=== PATIENT | male | born 1960 | race Hispanic/Latino ===

== ENCOUNTER 2020-04-15 09:46 | Outpatient (CLI) | payer OTHER ==
--- NOTE | 2020-04-15 11:34 | Cat Scan Report ---
CT ABDOMEN AND PELVIS WITHOUT CONTRAST HISTORY: MALIGNANT NEOPLASM OF PROSTATE COMPARISON: None. TECHNIQUE: Axial CT images were obtained through the abdomen and pelvis without IV contrast. Sagittal and coronal reformatted images. All CT scans at this location are performed using CT dose reduction for ALARA by means of automated exposure control. FINDINGS: CT ABDOMEN: Lung Bases: Clear. Liver: No significant abnormality. Biliary: Gallbladder is surgically absent. Spleen: No significant abnormality. Unenlarged. Pancreas: No significant abnormality. Adrenals: No significant abnormality. Kidneys: No significant abnormality. Lymphatics: No pathologic lymphadenopathy. Vasculature: No significant abnormality. Bowel/Peritoneum: No significant abnormality. No free air. No free fluid. Appendectomy changes. CT PELVIS: : No significant abnormality. Osseous Structures: No suspicious bony lesion is detected. Additional Findings: None IMPRESSION: No significant abnormality. No evidence for metastatic disease on noncontrast CT. Signer Name: Jefferson Lombardi Jr, MD Signed: 04/15/2020 11:30 AM Workstation Name: [id number]
--- NOTE | 2020-04-15 14:01 | Nuclear Medicine Report ---
NUCLEAR MEDICINE BONE SCAN, WHOLE BODY INDICATION: MALIGNANT NEOPLASM OF PROSTATE. TECHNIQUE: 25.2 mCi of Tc-99m MDP were injected IV. Whole body images were obtained. COMPARISON: CT abdomen and pelvis performed the same day. FINDINGS: Skeletal Structures: Fairly symmetric, likely degenerative uptake is present involving the shoulders , sternoclavicular joints and mid thoracic spine. Skeletal Lesions: None. Soft Tissues: Normal. Kidneys: Normal, symmetric activity. Additional Findings: None. IMPRESSION: No significant scintigraphic abnormality. Signer Name: Jefferson Lombardi Jr, MD Signed: 04/15/2020 1:56 PM Workstation Name: [id number]
== END 2020-04-15 09:47 | disposition home or self-care (01) ==
LOC: NM 09:46
PROVIDERS: ATTEND Urology
DX: C61 Malignant neoplasm of prostate (principal)
CPT/HCPCS: 74176; 78306; A9503